=== PATIENT | female | born 1935 | race Caucasian/White ===

== ENCOUNTER 2017-12-29 06:39 | Inpatient (IN) | payer MEDICARE, OTHER, SELFPAY ==
[2017-12-21 09:55] VITALS: BMI 26.9
[2017-12-29] VITALS (19 sets, daily range): BP systolic 91–128; BP diastolic 41–71; PULSE 68–101; RESP 10–20; TEMP 35.5–36.4; O2SAT 86–100; BMI 26.9
--- NOTE | 2017-12-29 | DI.RAD.S_ITS ---
PROCEDURE: XR HIP W PEL IF DONE LT 2V INDICATIONS: LEFT TOTAL HIP TECHNIQUE: AP pelvis and lateral view of the left hip acquired. COMPARISON: [facility] [place], [place], XR PELVIS WITH LATERAL HIP LEFT, 11/24/2017, 13:45. FINDINGS: Bones: Patient is status post left hip arthroplasty, with hardware components in expected positions. The hip joint appears congruent. The visualized bony structures appear intact. Soft tissues: Overlying postoperative changes are noted. No suspicious soft tissue densities. IMPRESSION: Left hip prosthesis in anatomic alignment. Dictated by: Ge Singh M.D. on 12/29/2017 at 13:29 Approved by: Ge Singh M.D. on 12/29/2017 at 13:30
[2017-12-29] MEDS: VANCOMYCIN 1,000 MG/200 ML FROZ.PIGGY 200 MG IV (07:25)
[2017-12-29] MEDS: LACTATED RINGERS 1,000 ML 42 ML IV ×2 (07:25→10:21)
--- NOTE | 2017-12-29 07:53 | SUR.OPER ---
Supine, head on pillow, torso on pink pad positioner. Iliac crest at flex of foot end of table. Gel roll under operative hip. Both arms secured on arm boards <90 degrees abduction.
[2017-12-29] MEDS: CELECOXIB 200 MG CAPSULE PO ×2 (07:54→21:05)
[2017-12-29] MEDS: ACETAMINOPHEN 325 MG TABLET 975 MG PO ×3 (07:54→21:04)
--- NOTE | 2017-12-29 08:02 | SUR.PREOP ---
Dr Dodge verballed cancelled test/lab on urine sample sent and lab told to dispose of sample. No order had been found in pre op orders.
[2017-12-29] MEDS: CEFAZOLIN 2 GM/100 ML FROZ.PIGGY IV ×2 (08:20→16:48)
[2017-12-29] MEDS: BUPIVACAINE 0.25% W/ EPI VIAL 50 ML INJ (09:00)
[2017-12-29] MEDS: BUPIVACAINE LIPOSOME 266 MG/20 ML VIAL INJ (09:00)
--- NOTE | 2017-12-29 13:21 | PM.PREOP ---
Pre-operative Note Interval Note Pre-op Check: History & Physical Reviewed by Physician and Exam Performed
--- NOTE | 2017-12-29 13:26 | P.OP_ITS ---
Operative Date/Time/Diagnoses Date of procedure: 12/29/17 Time of procedure: 08:22 Pre-op diagnosis: Left hip OA severe Post-op diagnosis: same Procedure & Clinicians Procedure: Left total hip arthroplasty Same procedure as scheduled: Yes Indications: The patient has had progressively worsening left hip pain with radiographic changes consistent with arthritis. Non-operative management has failed and the patient has requested total hip replacement. The risks, benefits and alternatives to surgery were discussed with the patient prior to proceeding. Risks discussed included, but were not limited to, failure to relieve pain, leg length discrepancy, dislocation, stiffness, infection, nerve damage, deep venous thrombosis, pulmonary embolism, stroke, coma, heart attack, permanent paralysis and , as well as the potential need for eventual revision of the prosthetic. Surgeon: Chely Dodge Client Technical Professional: Darlene Murillo Anesthesia Type: General Operative Notes Findings: Severe left hip osteoarthritis, adequate stability, tight hip with moderate scar Closure Type: primary Specimen(s): none sent Implants & Drains: [employer] R3 cup 52, polyethylene 52 x 36 neutral, size 6 anthology femoral stem [employer], -3 head Blood products transfused: none Procedure in detail: The patient was brought to the operating room. Patient was carefully positioned in the supine position. Time-out was performed and antibiotics were given. Anesthesia was induced. She was positioned in the on the table in order to allow hyperextension of the hip. Bilateral lower extremities were prepped and draped in a standard sterile fashion. An anterior incision was made 1 fingerbreadth lateral to the anterior superior iliac spine and extended distally towards the greater trochanter. Dissection was carried out through skin and subcutaneous tissues. The skin and subcutaneous tissues were carefully injected with Marcaine with epi. Superficial hemostasis was achieved. The fascia over the tensor fascia pineda was defined and incised with a knife. Two Allis clamps were used to grasp the fascia. Tensor fascia pineda was retracted laterally. A gelpi retractor was placed. Dissection was carried out down along the neck. The circumflex vessels were carefully identified and cauterized with the Aqua Mantis. There was good visualization of the femoral neck. A Cobra was placed superior to the neck and the gluteus fibers were carefully stripped from that superior aspect of the capsule. There was moderate scar in the anterior hip. A 2nd retractor was placed along the inferior aspect of the neck. The rectus insertion along the capsule was released. A 3rd retractor that was then gently placed over the rim of the acetabulum under the rectus. Capsule was carefully incised and released from the intertrochanteric line circumferentially superior to the mid sagittal line and inferiorly to the mid sagittal line until the lesser trochanter was palpable. A tag stitch was placed both in the superior and inferior limb of the capsular insertion. The acetabulum capsule was also released up to the mid sagittal 12:00 position. Portion of the labrum was resected. A saw was used to perform an osteotomy at the level of the intertrochanteric line and the junction of the superior femoral neck leaving approximately 1 finger breath of residual inferior neck above the lesser trochanter. A 2nd cut was made along the femoral neck at the base of the head and a napkin ring of neck was removed. Corkscrew was placed in the femoral head and the head was removed without difficulty. Retractors were then repositioned around the acetabulum. Residual labrum was resected and additional osteophytes were removed. A Reamer that was 4 mm below the templated size was placed by hand in the acetabulum and it was reamed to centralize the acetabulum. It was then reamed up to 2 under the templated size fluoroscopy was brought in to confirm the position of the reaming and depth of reaming. I reamed 1 under the anticipated size and touch the rim with line to line reaming. A trial cup was placed and noted that it was appropriately sized and fluoroscopy confirmed position and depth. The component was open and inserted without difficulty fluoroscopic imaging was used to confirm that the cup had been adequately seated and was well positioned. Neutral poly liner was placed. The cup was tested and noted to be stable. Attention was then directed to the femur. The femur was gently hyperextended additional capsular release was performed as needed in order to allow adequate visualization of the proximal femur with elevation of the femur. Patient was placed in a hyperextended slightly abducted position with maximum external rotation. Box osteotome was used to check for any residual neck as well as sclerotic bone along the trochanter. Causey pepper was placed in the femur. Additional broaching was performed. Canal finer was used to determine the alignment of the canal and position. Size 1 broach was placed. The canal was then appropriately broached up to the templated size as long as there was adequate stability of the broach and serial advancement of the broach without excessive impingement. Specific attention was directed at avoiding varus attempting to direct the distal aspect of the approach more anteriorly and avoiding excessive anteversion. Trial reduction showed acceptable range of motion, good stability, no posterior impingement, catholic of leg length and appropriate lateral shuck. I also hyperflexed the hip and checked that there was no impingement anteriorly and there was good stability with flexion, abduction and internal rotation. Final neutral poly was placed without difficulty. Marcaine and Exparel were injected.. The stem was placed without difficulty. Repeat trial reduction and x-ray showed acceptable overall position, length, and no evidence of the femoral fracture. Final head was placed. Wound was meticulously irrigated with normal saline. The hip was reduced and additional Exparel and Marcaine were injected. The capsule was closed with interrupted black braided nylon. The fascia of the tensor was closed with interrupted and running Vicryl. No drain was placed. Any tensor fascia pineda muscle that appeared to be contused or injured which was a minimal amount was carefully resected. Capsule around the tensor was injected with Exparel and Marcaine. The skin was closed with barbed stitches for the subcutaneous tissue and skin. We also used surgical glue. The wound was dressed sterilely. Brief Betadine soak was also used and was meticulously irrigated with normal saline. Patient was transferred to recovery room in satisfactory condition. Complications: none Condition: stable Disposition: Acute Care Plan for aftercare: The patient will be maintained on a standard total hip replacement protocol with weight bearing as tolerated and posterior hip precautions. The patient will receive aspirin and sequential compression devices for DVT prophylaxis. The patient will be discharged home when safe for the home environment.
--- NOTE | 2017-12-29 15:02 | PC.NURSE ---
PT ARRIVED FROM PACU AT APPROX 1400. A/OX3. BP LOW. PT DENIES DIZZINESS OR S/S OF HYPOTENSION. RA SATS 98%, HOSPITAL C-PAP AT BEDSIDE FOR SLEEP. AQUACEL TO LEFT HIP C/D/I. CMS+. SCD'S PLACED ON. DENIES PAIN. SPOUSE AT BEDSIDE. ORIENTED TO ROOM AND CALL SYSTEM. NO PALACIOS PT VERBALIZED SHE WILL NOTIFY STAFF WITH URGE TO VOID. BED ALARM PLACED ON.
--- NOTE | 2017-12-29 15:15 | PT.IIE ---
Current Diagnoses Unilateral primary osteoarthritis, left hip (12/29/17) Surgery Performed Operation Date: 12/29/17 07:45 Actual Procedures p Total Hip Arthroplasty/Anterior Approach - Chely Benavides MD Surgical History (Last Updated 12/21/17 @ 10:53 by Minerva Charlton, RN) History of arthroplasty of right knee (Acute) History of bilateral tubal ligation (Acute) History of carpal tunnel surgery of right wrist (Acute) History of partial mastectomy of left breast (Acute) History of total right hip arthroplasty (Acute) Status post left partial knee replacement (Acute) Medical History (Last Updated 12/21/17 @ 13:57 by Minerva Charlton RN) Arthritis (Acute) Breast cancer (Acute) Depression (Acute) Easy bruisability (Acute) First degree AV block (Acute) EKWOK (hard of hearing) (Acute) HTN (hypertension) (Acute) Hyperlipidemia (Acute) Neck pain (Acute) Osteoarthritis (Acute) PAC (premature atrial contraction) (Acute) Pulmonary hypertension (Acute) Restless leg syndrome (Acute) Physical Therapy Inpatient Evaluation/Re-Eval M1 PT/OT-IP Prior Functional Status Start: 12/29/17 16:58 Freq: NEEDED Status: Active Protocol: Document 12/29/17 15:15 AB (Rec: 12/29/17 17:10 AB [id number]) Medical Review Prior Functional Status Medical History Reviewed Yes Communication able to make needs known Mobility and Gait pt stated that she is independent with ambulation without AD but has used SPC for the last 2 weeks due to L hip Social History Household Members spouse Living Arrangements House Number of Floors (Floors) One Floor Number of Stairs To Enter/Railing? has no steps to enter from the garage to her room but has 2 platform steps to get to the the rest of the house Home Environment Standard Height Toilet Walk in Shower Home Equipment Front Wheel Walker Straight Cane Manual Wheelchair Shower Seat without Backrest Hand Held Shower Employment Status Retired M2 PT-IP Current Condition Start: 12/29/17 16:58 Freq: NEEDED Status: Active Protocol: Document 12/29/17 15:15 AB (Rec: 12/29/17 17:10 AB [id number]) Physical Therapy Current Condition Current Condition Evaluation Date 12/29/17 Treatment Diagnosis s/p L YEN Onset Date 12/29/17 Precautions Anterior Hip Precautions No Hip Extension No Hip External Rotation Other Precautions per doctor's operative notes under plan of care: posterior hip precautions but on order: anterior hip precautions. informed nurse and stated that Dr. benavides specify anterior hip precautions Weight Bearing Status Weight Bearing Status Weight Bear as Tolerated M3 PT-IP Subjective Start: 12/29/17 16:58 Freq: NEEDED Status: Active Protocol: Document 12/29/17 15:15 AB (Rec: 12/29/17 17:10 AB [id number]) Subjective Physical Therapy Visit Type Type Initial Evaluation Visit Start Time 15:15 Visit Stop Time 16:38 Total Visit Minutes 83 Number of RESPIRATORY PHYSICIAN Visits 0 Physical Therapy Visit Comments Patient Comments pt agreeable to do therapy Therapy Pain Assessment Pain When Pain Assessed At Rest Pain Present Pain Present Pain Reported Location left hip Intensity 2 Scale Used Numeric (1 - 10) Pain Management Techniques Apply Cold M4 PT-IP Mobility and Gait Start: 12/29/17 16:58 Freq: NEEDED Status: Active Protocol: Document 12/29/17 15:15 AB (Rec: 12/29/17 17:10 AB [id number]) PT-Bed Mobility Assessment Supine to Sit Supine to Sit Standby Assistance Sit to Supine Sit to Supine Standby Assistance Scooting Scooting to Edge of Bed Standby Assistance PT-Transfer Assessment Sit to and From Stand Sit to and from Stand Contact Guard Assistance Equipment Transfer Assistive Device Gait Belt Front Wheeled Walker Orthotic/Prosthetic Devices or Brace: No Transfers Transfer Destination Toilet Transfer Technique pt ambulated to the toilet Transfer Ability Level of Assist Contact Guard Assistance Use of Upper Extremities Gait Assessment Gait Gait Assistance Required: Contact Guard Assist Distance (Feet) (feet) 12 Able to Maintain Weight Bearing Status Yes During Gait Assistive Devices Assistive Device Gait Belt Front Wheeled Walker Orthotic/Prosthetic Devices or Brace: No Gait Deviations General Gait Pattern Antalgic Factors Limiting Gait Function Factors Limiting Gait Function Decreased Activity Tolerance Decreased Strength Limited Range of Motion Pain Poor Balance Poor Safety Awareness PT-Balance Assessment Sitting Balance and Reactions Static Sitting Balance Ability Good Dynamic Sitting Balance Ability Good Standing Balance and Reactions Static Standing Balance Ability Fair Dynamic Standing Balance Ability Fair Device Used FWW M5 PT-IP Objective Assessments Start: 12/29/17 16:58 Freq: NEEDED Status: Active Protocol: Document 12/29/17 15:15 AB (Rec: 07/13/18 17:10 AB [id number]) Orientation Orientation/Cognition Level of Alertness Alert Orientation Name Age Birthday Place Situation Safety Awareness Decreased Safety Awareness Gross Range of Motion Lower Extremity ROM Assessment Within Functional Limits Strength Lower Extremity Strength Assessment Left Impaired Hip 4-/5 Knee 4-/5 Ankle 4+/5 Sensation Assessment Sensation Gross Sensation WNL M6 PT-IP Treatment Start: 12/29/17 16:58 Freq: NEEDED Status: Active Protocol: Document 12/29/17 15:15 AB (Rec: 12/29/17 17:10 AB [id number]) Physical Therapy Treatment Education Education Provided Precautions Weight Bearing Status Post-Op Packet Safety Other Treatments Other Treatment Performed pt's spouse present and educated on precautions; pt ambulated to the toilet using FWW CGA ~ 12 ft and was able to maintain standing balance CGA while doing hygiene care. pt ambulated back towards the bed using FWW CGA. positioned pt in bed. ice pack provided. M7 PT-IP Assessment and Plan Start: 12/29/17 16:58 Freq: NEEDED Status: Active Protocol: Document 12/29/17 15:15 AB (Rec: 12/29/17 17:10 AB [id number]) PT Summary Assessment and Plan Potential Rehabilitation Potential Good Status of Condition at Evaluation Evolving Summary Impairments Pain ROM Strength Balance Cognition Bed Mobility Transfers Gait Activity Tolerance Assessment Summary pt requiring one person assist with mobility and will have spouse to assist her at home. Goals Bed Mobility Goal Independent Transfer Goal Independent Gait Goal Standby Assistance Gait Distance 150 Other Goals up/down 2 platform steps using FWW SBA Days to Meet Goals 2 Frequency of Treatment Frequency Of Treatment Twice a Day Treatment Plan Physical Therapy Treatment Plan Bed Mobility Training Transfer Training Gait Training Therapeutic Exercise Balance Retraining Post Op Education Discharge Planning Hot or Cold Pack Neuromuscular Re-ed Coordination Retraining Manual Therapy Other Recommendations and Next Treatment stair climbing, caregiver Focus training Recommendations To Nursing Amount of Assist Needed 1 Person Assist Discharge Recommendations PT Discharge Recommendations Home with Assistance Outpatient PT
[2017-12-29] MEDS: LACTATED RINGERS 1,000 ML 125 ML IV (16:47)
[2017-12-29] MEDS: PRAMIPEXOLE 1 MG TABLET 2 MG PO ×2 (16:47→21:05)
[2017-12-29] MEDS: CEFADROXIL 500 MG 500 EACH PO (21:04)
[2017-12-29] MEDS: DOCUSATE 100 MG CAPSULE PO (21:05)
[2017-12-29] MEDS: ATORVASTATIN 20 MG TABLET PO (21:05)
[2017-12-29] MEDS: ASPIRIN EC 81 MG TABLET PO (21:05)
--- NOTE | 2017-12-29 21:26 | PC.NURSE ---
Addendum entered by Swathi Vazquez R.N. 12/29/17 22:39: pt desats while sleeping, as low as 79%. pt agreeable to try CPAP for tonight. will continue to monitor Original Note: SHIFT NOTE Pt with histroy of sleep apnea and refuses CPAP use here at the hospital (pt came up to the unit with CPAP in place and intermittently resting/desat per report) pt can be heard snoring loudly from outside the room if CPAP not in place. per pt report, she refuses to wear her CPAP at home. RT at bedside to discuss withpt. pt verbally agreeable to wear continuous O2 monitor overnight and RT will be notified if desats occur.
[2017-12-29] MEDS: TRAMADOL 50 MG TABLET PO (23:46)
--- NOTE | 2017-12-30 00:03 | PC.NURSE ---
Alert and oriented but SELDOVIA even with bilateral hearing aids in. Breath sounds CTA. Using CPAP at night and resting sat on RA was 98%. HRR. Denies nausea. BT hypoactive but states she has passed some flatus. Voiding without difficulty and expresses no concerns with urination. Able to move self in bed and walked to bathroom with walker and 1 assist. Dressing to left hip is CDI. Does complain of 7/10 which she states is much better than it has been but agreeable to taking Tramadol as earlier Tylenol was not effective and is hesitant to take narcotics. Wearing bilateral SCD's. Fall risk score is high and bed alarm is activated.
[2017-12-30 00:08] VITALS: BP 140/63; PULSE 93; RESP 17; TEMP 36.2; O2SAT 97
[2017-12-30] MEDS: CEFAZOLIN 2 GM/100 ML FROZ.PIGGY IV (00:47)
[2017-12-30] MEDS: LACTATED RINGERS 1,000 ML 125 ML IV (00:50)
[2017-12-30] MEDS: OXYCODONE IR 5 MG TABLET PO ×4 (02:55→19:37)
[2017-12-30 05:39] LABS: Hematocrit 37.6 % (36-46); Hemoglobin 12.9 g/dL (12.0-16.0)
[2017-12-30 05:56] VITALS: BP 136/70; PULSE 87; RESP 17; TEMP 36.7; O2SAT 99
[2017-12-30 08:00] VITALS: BP 121/71; PULSE 87; RESP 16; TEMP 36.5; O2SAT 96
[2017-12-30] MEDS: ACETAMINOPHEN 325 MG TABLET 975 MG PO ×3 (08:11→20:32)
[2017-12-30] MEDS: ANASTROZOLE 1 MG TABLET PO (08:12)
[2017-12-30] MEDS: PRAMIPEXOLE 1 MG TABLET 2 MG PO ×3 (08:12→20:33)
[2017-12-30] MEDS: CEFADROXIL 500 MG 500 EACH PO ×2 (08:12→20:33)
[2017-12-30] MEDS: ASPIRIN EC 81 MG TABLET PO ×2 (08:12→20:33)
[2017-12-30] MEDS: DOCUSATE 100 MG CAPSULE PO ×2 (08:12→20:33)
[2017-12-30] MEDS: FLUoxetine 20 MG CAPSULE PO (08:12)
--- NOTE | 2017-12-30 09:17 | PT.IPTN ---
Current Diagnoses Unilateral primary osteoarthritis, left hip (12/29/17) Surgery Performed Operation Date: 12/29/17 07:45 Actual Procedures p Total Hip Arthroplasty/Anterior Approach - Chely Benavides MD Physical Therapy Treatment Note M2 PT-IP Current Condition Start: 12/29/17 16:58 Freq: NEEDED Status: Active Protocol: Document 12/29/17 15:15 AB (Rec: 12/29/17 17:10 AB [id number]) Physical Therapy Current Condition Current Condition Evaluation Date 12/29/17 Treatment Diagnosis s/p L YEN Onset Date 12/29/17 Precautions Anterior Hip Precautions No Hip Extension No Hip External Rotation Other Precautions per doctor's operative notes under plan of care: posterior hip precautions but on order: anterior hip precautions. informed nurse and stated that Dr. benavides specify anterior hip precautions Weight Bearing Status Weight Bearing Status Weight Bear as Tolerated M3 PT-IP Subjective Start: 12/29/17 16:58 Freq: NEEDED Status: Active Protocol: Document 12/30/17 09:17 AB (Rec: 12/30/17 11:06 AB [id number]) Subjective Physical Therapy Visit Type Type Treatment Note Visit Start Time 09:17 Visit Stop Time 09:44 Total Visit Minutes 27 Number of UNDERWATER ROBOTICIST Visits 0 Physical Therapy Visit Comments Patient Comments pt agreeable to do therapy Therapy Pain Assessment Pain When Pain Assessed At Rest Pain Present Pain Present Pain Reported Location left hip Intensity 7 Scale Used Numeric (1 - 10) Pain Management Techniques Apply Cold Re-positioning Timing of Activity with Medications M4 PT-IP Mobility and Gait Start: 12/29/17 16:58 Freq: NEEDED Status: Active Protocol: Document 12/30/17 09:17 AB (Rec: 12/30/17 11:06 AB [id number]) PT-Bed Mobility Assessment Supine to Sit Supine to Sit Standby Assistance PT-Transfer Assessment Sit to and From Stand Sit to and from Stand Minimal Assistance 1 Person Assistance Use of Upper Extremities Equipment Transfer Assistive Device Gait Belt Front Wheeled Walker Transfers Transfer Destination Toilet Transfer Technique pt ambulated to the toilet Gait Assessment Gait Gait Assistance Required: Minimum Assistance 1 Person Assist Distance (Feet) (feet) 10 Able to Maintain Weight Bearing Status Yes During Gait Assistive Devices Assistive Device Gait Belt Front Wheeled Walker Orthotic/Prosthetic Devices or Brace: No Gait Deviations General Gait Pattern Antalgic Decreased Stride Length Decreased Feet Clearance Factors Limiting Gait Function Factors Limiting Gait Function Decreased Activity Tolerance Decreased Strength Pain Poor Balance Poor Safety Awareness Comments Gait Comments pt refused further ambulation. BP prior to tx: 93/51 BP sitting on EOb: 128/63 BP sitting on chair after ambulation: 118/57 M5 PT-IP Objective Assessments Start: 12/29/17 16:58 Freq: NEEDED Status: Active Protocol: Document 12/29/17 15:15 AB (Rec: 12/29/17 17:10 AB [id number]) Orientation Orientation/Cognition Level of Alertness Alert Orientation Name Age Birthday Place Situation Safety Awareness Decreased Safety Awareness Gross Range of Motion Lower Extremity ROM Assessment Within Functional Limits Strength Lower Extremity Strength Assessment Left Impaired Hip 4-/5 Knee 4-/5 Ankle 4+/5 Sensation Assessment Sensation Gross Sensation WNL M6 PT-IP Treatment Start: 12/29/17 16:58 Freq: NEEDED Status: Active Protocol: Document 12/30/17 09:17 AB (Rec: 12/30/17 11:06 AB [id number]) Physical Therapy Treatment Education Education Provided Precautions Weight Bearing Status Post-Op Packet Safety M7 PT-IP Assessment and Plan Start: 12/29/17 16:58 Freq: NEEDED Status: Active Protocol: Document 12/30/17 09:17 AB (Rec: 12/30/17 11:06 AB [id number]) PT Summary Assessment and Plan Potential Rehabilitation Potential Good Summary Impairments Pain ROM Strength Balance Cognition Bed Mobility Transfers Gait Activity Tolerance Progress Towards Goals Progressing Toward Goals Assessment Summary pt requiring one person assist with mobility and will have spouse to assist her at home. will conduct caregiver training when appropriate. Goals Bed Mobility Goal Independent Transfer Goal Independent Gait Goal Standby Assistance Gait Distance 150 Other Goals up/down 2 platform steps using FWW SBA Days to Meet Goals 2 Frequency of Treatment Frequency Of Treatment Twice a Day Treatment Plan Physical Therapy Treatment Plan Bed Mobility Training Transfer Training Gait Training Therapeutic Exercise Balance Retraining Post Op Education Discharge Planning Hot or Cold Pack Neuromuscular Re-ed Coordination Retraining Manual Therapy Other Recommendations and Next Treatment stair climbing, caregiver Focus training Recommendations To Nursing Amount of Assist Needed 1 Person Assist Discharge Recommendations PT Discharge Recommendations Home with Assistance Outpatient PT
--- NOTE | 2017-12-30 10:02 | PM.PNPO.1 ---
Subjective Date Patient Seen: 12/30/17 Time Patient Seen: 10:02 Interval history: PD 1. S/P LT Anterior YEN by Dr. Dodge. Patient states pain is tolerable with pain medications. present in room. Has not been up with PT yet. Plan is to d/c home tomorrow. Pt lives on [facility]. [facility] patient so had discharge medications already. Exam Vital Signs (past 8 hours): - 12/30/17 05:56 12/30/17 08:00 Temperature 98.0 F 97.7 F Pulse Rate 87 87 Respiratory Rate 17 16 Blood Pressure 136/70 H 121/71 H Pulse Oximetry 99 96 Oxygen Delivery Method Room Air,CPAP Oxygen Flow Rate 0 Narrative Exam Narrative: Pt in bed. A&O x3. Left hip Aquacel dressing CDI. Mod swelling in left thigh. 5/5 Left ankle strength. Gigi calves soft and nontender. NV status intact. Objective Labs Result Diagrams: 12/30/17 05:17 Labs: Laboratory Results - last 24 hr 12/30/17 05:17 Hgb 12.9 Hct 37.6 Assessment & Plan Post-op Postoperative Procedures Operation Date: 12/29/17 07:45 Actual Procedures Side Surgeon p Total Hip Arthroplasty/Anterior Approach Chely Dodge MD PD1 s/p LT YEN. Continue DVT prophylaxis with ASA and SCDs. Mobilize with PT. Continue pain medications as needed. Plan for d/c home tomorrow. Time Spent With Patient less than 15 minutes Quality VTE Deep Vein Thrombosis/Pulmonary Embolism Present on Admission: No
[2017-12-30 12:00] VITALS: BP 105/58; PULSE 85; RESP 16; TEMP 36.7; O2SAT 97
--- NOTE | 2017-12-30 14:35 | PT.IPTN ---
Current Diagnoses Unilateral primary osteoarthritis, left hip (12/29/17) Surgery Performed Operation Date: 12/29/17 07:45 Actual Procedures p Total Hip Arthroplasty/Anterior Approach - Chely Benavides MD Physical Therapy Treatment Note M2 PT-IP Current Condition Start: 12/29/17 16:58 Freq: NEEDED Status: Active Protocol: Document 12/29/17 15:15 AB (Rec: 12/29/17 17:10 AB [id number]) Physical Therapy Current Condition Current Condition Evaluation Date 12/29/17 Treatment Diagnosis s/p L YEN Onset Date 12/29/17 Precautions Anterior Hip Precautions No Hip Extension No Hip External Rotation Other Precautions per doctor's operative notes under plan of care: posterior hip precautions but on order: anterior hip precautions. informed nurse and stated that Dr. benavides specify anterior hip precautions Weight Bearing Status Weight Bearing Status Weight Bear as Tolerated M3 PT-IP Subjective Start: 12/29/17 16:58 Freq: NEEDED Status: Active Protocol: Document 12/30/17 14:35 AB (Rec: 12/30/17 16:33 AB [id number]) Subjective Physical Therapy Visit Type Type Treatment Note Visit Start Time 14:35 Visit Stop Time 14:55 Total Visit Minutes 20 Number of ELL TEACHER Visits 0 Physical Therapy Visit Comments Patient Comments pt agreeable to do therapy Therapy Pain Assessment Pain When Pain Assessed At Rest Pain Present Pain Present Pain Reported Location left hip Intensity 7 Scale Used Numeric (1 - 10) Pain Management Techniques Apply Cold Timing of Activity with Medications M4 PT-IP Mobility and Gait Start: 12/29/17 16:58 Freq: NEEDED Status: Active Protocol: Document 12/30/17 14:35 AB (Rec: 12/30/17 16:33 AB [id number]) PT-Bed Mobility Assessment Sit to Supine Sit to Supine Contact Guard Assistance PT-Transfer Assessment Sit to and From Stand Sit to and from Stand Contact Guard Assistance Equipment Transfer Assistive Device Gait Belt Front Wheeled Walker Comments Mobility Comments pt requested to go back to bed after ambulation. Gait Assessment Gait Gait Assistance Required: Contact Guard Assist Distance (Feet) (feet) 100 Able to Maintain Weight Bearing Status Yes During Gait Assistive Devices Assistive Device Gait Belt Front Wheeled Walker Gait Deviations General Gait Pattern Antalgic Factors Limiting Gait Function Factors Limiting Gait Function Decreased Activity Tolerance Decreased Strength Limited Range of Motion Pain Poor Balance M5 PT-IP Objective Assessments Start: 12/29/17 16:58 Freq: NEEDED Status: Active Protocol: Document 12/29/17 15:15 AB (Rec: 12/29/17 17:10 AB [id number]) Orientation Orientation/Cognition Level of Alertness Alert Orientation Name Age Birthday Place Situation Safety Awareness Decreased Safety Awareness Gross Range of Motion Lower Extremity ROM Assessment Within Functional Limits Strength Lower Extremity Strength Assessment Left Impaired Hip 4-/5 Knee 4-/5 Ankle 4+/5 Sensation Assessment Sensation Gross Sensation WNL M6 PT-IP Treatment Start: 12/29/17 16:58 Freq: NEEDED Status: Active Protocol: Document 12/30/17 14:35 AB (Rec: 12/30/17 16:33 AB [id number]) Physical Therapy Treatment Education Education Provided Precautions Weight Bearing Status Post-Op Packet Safety M7 PT-IP Assessment and Plan Start: 12/29/17 16:58 Freq: NEEDED Status: Active Protocol: Document 12/30/17 14:35 AB (Rec: 12/30/17 16:33 AB [id number]) PT Summary Assessment and Plan Potential Rehabilitation Potential Good Summary Impairments Pain ROM Strength Balance Sensation Bed Mobility Transfers Gait Activity Tolerance Progress Towards Goals Progressing Toward Goals Assessment Summary pt requiring CGA with mobility and plans to go home with her spouse to assist her. pt refused to do stair stated that she plans to stay on her bedroom for the next few weeks and does not have to do stairs. pt her bedroom but has 2 platform steps to get to other placed in the house. Goals Bed Mobility Goal Independent Transfer Goal Independent Gait Goal Standby Assistance Gait Distance 150 Other Goals up/down 2 platform steps using FWW SBA Days to Meet Goals 2 Frequency of Treatment Frequency Of Treatment Twice a Day Treatment Plan Physical Therapy Treatment Plan Bed Mobility Training Transfer Training Gait Training Therapeutic Exercise Balance Retraining Post Op Education Discharge Planning Hot or Cold Pack Neuromuscular Re-ed Coordination Retraining Manual Therapy Other Recommendations and Next Treatment stair climbing, caregiver Focus training Recommendations To Nursing Amount of Assist Needed 1 Person Assist Discharge Recommendations PT Discharge Recommendations Home with Assistance Outpatient PT
[2017-12-30 16:09] VITALS: BP 124/61; PULSE 81; RESP 16; TEMP 36.8; O2SAT 96
--- NOTE | 2017-12-30 16:35 | CM.DANOTE ---
DCP/Assessment: Reviewed chart. Patient is a 82yr old female admitted to [facility] for elective Left YEN performed on 12-29-[address] Dodge. PCP listed is Dr. Stark. Primary payor is 1)Medicare 2)[facility]. Met with patient explained CM/SW role. Patient seen by therapy and current recommendation by Ortho and therapy is for patient to d/c home when medically stable. Patient aware and agreeable, hopes to discharge tomorrow 12-31-17. Patient reports that she has all needed DME and outpatient therapy has been arranged in Monday. Patient reports that her spouse/Rony will pick her up at time of d/c. Patient indicates that she will need priority boarding pass to return to Monday ([place]). Name/number and plan of CM steamship agent placed on white board. P: Home when stable. CM team to follow closely. MANAS Harris Discharge Planning/Care Management CM Discharge Assessment Start: 12/30/17 16:33 Freq: Status: Active Protocol: Document 12/30/17 16:34 KJS (Rec: 12/30/17 16:35 KJS [id number]) Discharge Planning Assessment Assigned Deputy Bailiff MANAS/Ailyn History Provided By Patient Has Patient been admitted in last 30 No days? Prior Living Arrangements House Household Members spouse Independent with ADL's Yes Is patient alert and oriented? Yes DME Already Rented / Owned Elevated Toilet Seat FWW / Walker Cane Other Community Services Needed at Discharge Physical Therapy Physical Barriers in Home Environment Stairs Discharge Plan Home Review Status In Process Next Review Type Continued Stay Review
[2017-12-30 19:35] VITALS: BP 148/63; PULSE 84; RESP 18; TEMP 36.7; O2SAT 98
[2017-12-30] MEDS: CELECOXIB 200 MG CAPSULE PO (20:32)
[2017-12-30] MEDS: ATORVASTATIN 20 MG TABLET PO (20:33)
[2017-12-30] MEDS: SODIUM CHLORIDE 0.9% FLUSH 10 ML IV (20:33)
[2017-12-31 00:31] VITALS: BP 144/67; PULSE 100; RESP 18; TEMP 36.5; O2SAT 97
[2017-12-31] MEDS: OXYCODONE IR 5 MG TABLET PO ×2 (00:34→08:01)
--- NOTE | 2017-12-31 07:43 | CM.DPNOTE ---
Addendum entered by MANAS Gibson 12/31/17 08:30: ADD: SW met bedside with pt and spouse and provided Medicare Rights and they acknowledged understanding and signed the Medicare Message. Pt discussed her pain and some apprehension about discharging home but discussed therapy team working with pt today before discharge and pt agreeable and feeling like d/c home today is likely doable. BF Original Note: DCP Discharge Home Per MD, pt is medically stable to d/c home today with no identified barriers to discharge. Per PT, recommending safe d/c home with spouse assist and outpt PT and pt plans to mostly stay in her bedroom to recover. Plan: Patient to d/c home today via spouse POV and Priority Boarding pass back to the [place]. No SW needs at this time, please refer if indicated. MANAS Gibson
[2017-12-31] MEDS: ACETAMINOPHEN 325 MG TABLET 975 MG PO (08:01)
[2017-12-31] MEDS: FLUoxetine 20 MG CAPSULE PO (08:02)
[2017-12-31] MEDS: ASPIRIN EC 81 MG TABLET PO (08:02)
[2017-12-31] MEDS: VALSARTAN 80 MG TABLET 320 MG PO (08:02)
[2017-12-31] MEDS: DOCUSATE 100 MG CAPSULE PO (08:02)
[2017-12-31] MEDS: PRAMIPEXOLE 1 MG TABLET 2 MG PO (08:03)
[2017-12-31] MEDS: CEFADROXIL 500 MG 500 EACH PO (08:03)
[2017-12-31] MEDS: ANASTROZOLE 1 MG TABLET PO (08:03)
[2017-12-31 08:14] VITALS: BP 139/65; PULSE 94; RESP 15; TEMP 36.4; O2SAT 96
--- NOTE | 2017-12-31 10:00 | PT.IPTN ---
Current Diagnoses Unilateral primary osteoarthritis, left hip (12/29/17) Surgery Performed Operation Date: 12/29/17 07:45 Actual Procedures p Total Hip Arthroplasty/Anterior Approach - Chely Benavides MD Physical Therapy Treatment Note M2 PT-IP Current Condition Start: 12/29/17 16:58 Freq: NEEDED Status: Active Protocol: Document 12/29/17 15:15 AB (Rec: 12/29/17 17:10 AB [id number]) Physical Therapy Current Condition Current Condition Evaluation Date 12/29/17 Treatment Diagnosis s/p L YEN Onset Date 12/29/17 Precautions Anterior Hip Precautions No Hip Extension No Hip External Rotation Other Precautions per doctor's operative notes under plan of care: posterior hip precautions but on order: anterior hip precautions. informed nurse and stated that Dr. benavides specify anterior hip precautions Weight Bearing Status Weight Bearing Status Weight Bear as Tolerated M3 PT-IP Subjective Start: 12/29/17 16:58 Freq: NEEDED Status: Active Protocol: Document 12/31/17 09:05 CLB (Rec: 12/31/17 10:00 CLB [id number]) Subjective Physical Therapy Visit Type Type Treatment Note Visit Start Time 09:05 Visit Stop Time 09:25 Total Visit Minutes 20 Number of ACCOUNTS RECEIVABLE CLERK Visits 1 Physical Therapy Visit Comments Patient Comments pt agreeable to do therapy Therapy Pain Assessment Pain When Pain Assessed At Rest Pain Present Pain Present Pain Reported Location left hip Intensity 7 Scale Used Numeric (1 - 10) Pain Management Techniques Apply Cold Timing of Activity with Medications M4 PT-IP Mobility and Gait Start: 12/29/17 16:58 Freq: NEEDED Status: Active Protocol: Document 12/31/17 09:05 CLB (Rec: 12/31/17 10:00 CLB [id number]) PT-Transfer Assessment Sit to and From Stand Sit to and from Stand Contact Guard Assistance Equipment Transfer Assistive Device Gait Belt Front Wheeled Walker Transfer Ability Level of Assist Contact Guard Assistance Use of Upper Extremities Comments Mobility Comments Pt and refused bed mobility training. Gait Assessment Gait Gait Assistance Required: Contact Guard Assist Distance (Feet) (feet) 100 Able to Maintain Weight Bearing Status Yes During Gait Assistive Devices Assistive Device Gait Belt Front Wheeled Walker Gait Deviations General Gait Pattern Antalgic Factors Limiting Gait Function Factors Limiting Gait Function Decreased Activity Tolerance Decreased Strength Limited Range of Motion Pain Poor Balance Comments Gait Comments Pt needed cues for step sequencing. Stair Climbing Assessment Comments Stair Climbing Comments Pt refused stair training stating she had no stairs to enter home and would stay in the area of the home that had no stairs for several weeks. M5 PT-IP Objective Assessments Start: 12/29/17 16:58 Freq: NEEDED Status: Active Protocol: Document 12/29/17 15:15 AB (Rec: 12/29/17 17:10 AB [id number]) Orientation Orientation/Cognition Level of Alertness Alert Orientation Name Age Birthday Place Situation Safety Awareness Decreased Safety Awareness Gross Range of Motion Lower Extremity ROM Assessment Within Functional Limits Strength Lower Extremity Strength Assessment Left Impaired Hip 4-/5 Knee 4-/5 Ankle 4+/5 Sensation Assessment Sensation Gross Sensation WNL M6 PT-IP Treatment Start: 12/29/17 16:58 Freq: NEEDED Status: Active Protocol: Document 12/31/17 09:05 CLB (Rec: 12/31/17 10:00 CLB [id number]) Physical Therapy Treatment Exercises Exercises Ankle Pumps Gluteal Sets Quad Sets Education Education Provided Precautions Weight Bearing Status Post-Op Packet Safety Other Treatments Other Treatment Performed present with good understanding of ther ex needing to be done at home. M7 PT-IP Assessment and Plan Start: 12/29/17 16:58 Freq: NEEDED Status: Active Protocol: Document 12/31/17 09:05 CLB (Rec: 12/31/17 10:00 CLB [id number]) PT Summary Assessment and Plan Potential Rehabilitation Potential Good Summary Impairments Pain ROM Strength Balance Sensation Bed Mobility Transfers Gait Activity Tolerance Progress Towards Goals Progressing Toward Goals Assessment Summary Pt continues to require CGA for mobility, pt and refused stair and Caregiver training stating they had friends that would also be coming to stay with them. Goals Bed Mobility Goal Independent Transfer Goal Independent Gait Goal Standby Assistance Gait Distance 150 Other Goals up/down 2 platform steps using FWW SBA Days to Meet Goals 2 Frequency of Treatment Frequency Of Treatment Twice a Day Treatment Plan Physical Therapy Treatment Plan Bed Mobility Training Transfer Training Gait Training Therapeutic Exercise Balance Retraining Post Op Education Discharge Planning Hot or Cold Pack Neuromuscular Re-ed Coordination Retraining Manual Therapy Other Recommendations and Next Treatment pt to d/c home Focus Recommendations To Nursing Amount of Assist Needed 1 Person Assist Discharge Recommendations PT Discharge Recommendations Home with Assistance Outpatient PT
--- NOTE | 2017-12-31 10:40 | PC.NURSE ---
1030 Pt dcd to home, Monday. escorted out via w/c. Gave Pt & spouse verbal & written instructions. Pass for Kj given to the spouse.
--- NOTE | 2018-01-02 10:24 | PM.DS.1 ---
History of Present Illness Date Patient Seen: 12/31/17 Chief complaint: [id number] LEFT TOTAL HIP ARTHROPLASTY ANTERIOR Narrative: Patient is a 82-year-old female with a history of left hip osteoarthritis. Failed conservative measures and elected to proceed with a left total hip replacement by Dr. Dodge at [facility] Discharge Providers Date of admission: 12/29/17 06:39 Primary care physician: Analy Stark MD Consults: 12/29/17 14:52 Consult to Discharge Planning Routine Comment: Consult to Physical Therapy Evaluate & Treat Comment: Physician Instructions: post op YEN protocol Consult to Respiratory Therapy Evaluate & Treat Comment: Physician Instructions: Evaluate and treat Discharge provider: Mireya Kc PA-C Summary Discharge Diagnosis: Left hip osteoarthritis Hospital Course: Patient was admitted and taken the operating room and she had a left anterior total hip arthroplasty by Dr. Dodge. She recovered well as transfer the floor for further care. Postop day 2 patient was ambulating well, pain was under control, urinating without difficulty and was ready to be discharged home. She is a [facility] patient and has her discharge medications already. ASA 81mg will be used for DVT prophylaxis. She has outpatient PT set up in Monday next week. Status at Discharge Cognitive/behavioral status at discharge: Alert and oriented x3 Functional status at discharge: uses cane/walker Overall status at discharge: patient is progressing back to baseline Time Spent with Patient Less than 30 minutes Exam Vital Signs (past 8 hours): Oxygen Delivery Method CPAP Oxygen Flow Rate 0 Narrative Exam Narrative: A&O x3. Left hip Aquacel dressing CDI. Mod swelling in left thigh. 5/5 Left ankle strength. Gigi calves soft and nontender. NV status intact. Objective Labs Result Diagrams: 12/30/17 05:17 Discharge Plan Discharge Plan Patient Disposition: Home, Self-Care Discharge comment: Start physical therapy next week. Continue home exercises. Discharge Med Rec/Prescriptions Prescriptions: New acetaminophen 325 mg Tablet 975 mg PO TID Qty: 0 RF: 0 aspirin 81 mg Tablet,Delayed Release (Dr/Ec) 81 mg PO BID Qty: 0 RF: 0 oxycodone 5 mg Tablet 5 mg PO Q4H PRN (Reason: Pain, Moderate (4-6)) Qty: 0 RF: 0 Continue celecoxib [Celebrex] 200 MG capsule 200 mg PO BEDTIME Qty: 0 RF: 0 anastrozole 1 mg Tablet 1 mg PO DAILY RF: 0 atorvastatin 20 mg Tablet 20 mg PO QAM RF: 0 pramipexole 0.5 mg Tablet 1 - 2 tab PO BEDTIME PRN (Reason: restless leg syndrome) RF: 0 cefadroxil 500 mg Capsule 500 mg PO BID RF: 0 nitroglycerin 0.4 mg Tablet, Sublingual 0.4 mg SUBLINGUAL Q5-15M PRN (Reason: Chest Pain) RF: 0 fluoxetine 20 mg Capsule 20 mg PO DAILY RF: 0 valsartan 160 mg Tablet 320 mg PO DAILY RF: 0 Discontinued tramadol 50 mg Tablet 50 mg PO BEDTIME PRN (Reason: pain) RF: 0 Follow up/Referrals: Chely Dodge MD [Physician] - (Follow-up as scheduled visit time and date. Contact office with any issues or concerns.) Provider Discharge Instructions Diet: Diet as Tolerated Activity: Weightbearing as tolerated left leg. Use walker/cane to assist in ambulation. Cold/Heat Therapy: Apply ice to the extremity as needed for swelling and pain. Wound Care Report to your healthcare provider any signs of infection, such as:: chills, fever, night sweats, increased pain and unusual drainage Dressing: Keep dressing clean dry intact. May shower. Visit Report/Discharge Packet Instructions: DI for Hip Replacement Visit Report Forms: Stroke Signs & Symptoms Discharge Data Primary Care Provider: Analy Stark Attending Provider: Chely Dodge Admit Date/Time: 12/29/17 06:39 Discharges patient from system. Discharge Date/Time: 12/31/17 10:30 Quality VTE Deep Vein Thrombosis/Pulmonary Embolism Present on Admission: No
== END 2017-12-31 10:30 | disposition home or self-care (01) | DRG 470 ==
PROVIDERS: Admitting Provider Orthopaedic Surgery; PCP Family Medicine Geriatric Medicine; Visit Provider Orthopaedic Surgery
PROC: 0SRB02Z Replacement of Left Hip Joint with Metal on Polyethylene Synthetic Substitute, Open Approach (ICD-10-PCS; CPT 27130; principal; 2017-12-29 07:45)
DX: M16.12 Unilateral primary osteoarthritis, left hip (principal); I10 Essential (primary) hypertension; I08.0 Rheumatic disorders of both mitral and aortic valves; Z87.891 Personal history of nicotine dependence
CPT/HCPCS: 36415; 73502; 76001; 85014; 85018; 94762; 97116; 97162; 97530; C1776; C9290; J0690; J1100; J2250; J2274; J2405; J2704; J3010; J3370

== ENCOUNTER 2020-04-21 11:04 | Day surgery (SDC) | payer MEDICARE, OTHER, SELFPAY ==
[2020-04-13 10:10] VITALS: BMI 26.9
[2020-04-21] MEDS: PROPARACAINE 0.5% OPHTH SOL 2 DROPS EYE-OP (11:34)
[2020-04-21] MEDS: CATARACT EYE COMPOUND (10 DROPS/SYRINGE) 3 DROPS EYE-OP (11:34)
[2020-04-21 11:37] VITALS: BP 175/86; PULSE 81; RESP 18; TEMP 36.3; O2SAT 99; BMI 28.7
--- NOTE | 2020-04-21 11:39 | PM.PREOP ---
Pre-operative Note Interval Note History & Physical reviewed/Exam performed by Physician: Yes Changes to H&P: No
--- NOTE | 2020-04-21 11:39 | PM.OP.1 ---
Operative Date/Time/Diagnoses Pre-op diagnosis: Nuclear cataract right eye Procedure & Clinicians Procedure: Cataract Surgery Same procedure as scheduled: Yes Surgeon: Yannick Somers Anesthesia Type: MAC +/- and Sedation Operative Notes Procedure in detail: Patient brought to the operating suite. Tetracaine drops placed in the right eye. Patient was prepped and draped in sterile manner. Wire lid speculum was placed in the eye. Betadine drops were placed on the eye. This was irrigated. Lidocaine jelly was placed on the eye. A paracentesis port was created with a side-port blade. 0.1 mL 1% preservative free lidocaine was injected into the anterior chamber. The anterior chamber was deepened with viscoelastic. 2.6 mm keratome was used to create a temporal clear corneal incision. Cystotome and Utrata forceps were used to create continuous tear capsulorrhexis. Balanced salt solution was used to hydro dissect the nucleus. The phacoemulsification handpiece was inserted and the nucleus was removed using the stop and chop technique. The irrigation aspiration handpiece was inserted and the remaining cortex was removed. Anterior chamber was deepened with viscoelastic. An Villasenor ZCB00 intraocular lens with a power of 22.0 was injected into the capsular bag. Irrigation aspiration handpiece was inserted and the remaining viscoelastic was removed. Incision was hydrated with balanced salt solution and found to be leak free with pressure with Weck-Narcisa sponges. 0.1 mL Vigamox injected anterior chamber. 0.3 mL Kenalog 10 mg was injected subconjunctivally. Lid speculum was removed. The patient left the operating room in excellent condition. Complications: none Post-operative Condition: stable Disposition: same day surgery
[2020-04-21] MEDS: PHENYLEPHRINE/LIDOCAINE VIAL (OR) 0.2 ML EYE-OP (12:08)
[2020-04-21] MEDS: MOXIFLOXACIN INJ 5 MG/ML VIAL EYE-OP (12:09)
[2020-04-21] MEDS: TRIAMCINOLONE 50 MG/5 ML VIAL INJ (12:09)
[2020-04-21] MEDS: CHONDROIDTIN/SOD HYALURONATE 1.05 ML SYRINGE INTRAOCULA (12:10)
[2020-04-21] MEDS: LIDOCAINE JELLY 2% 5 ML 1 APPLIC TOP (12:10)
[2020-04-21] MEDS: TETRACAINE 0.5% OPHTH DROPS 4 ML 2 DROPS EYE-OP (12:11)
[2020-04-21] MEDS: BALANCED SALT IRRIG SOLN NO.2 500 ML, EPINEPHrine 1 MG IRR (12:11)
[2020-04-21 12:33] VITALS: BP 143/84; PULSE 77; RESP 16; TEMP 36.9; O2SAT 96
== END 2020-04-21 12:56 | disposition home or self-care (01) ==
PROVIDERS: PCP Family Medicine; Referring Provider Ophthalmology; Visit Provider Ophthalmology
PROC: (CPT 66984; principal; 2020-04-21 12:15)
DX: H25.11 Age-related nuclear cataract, right eye (principal); I10 Essential (primary) hypertension; I50.9 Heart failure, unspecified; G25.81 Restless legs syndrome
CPT/HCPCS: 66984; J0171; J2250; J3301

== ENCOUNTER 2020-05-05 11:29 | Day surgery (SDC) | payer MEDICARE, OTHER, SELFPAY ==
[2020-04-13 10:10] VITALS: BMI 26.9
[2020-05-05] MEDS: PROPARACAINE 0.5% OPHTH SOL 2 DROPS EYE-OP (12:01)
[2020-05-05] MEDS: CATARACT EYE COMPOUND (10 DROPS/SYRINGE) 3 DROPS EYE-OP (12:02)
[2020-05-05 12:03] VITALS: BP 183/96; PULSE 85; RESP 16; TEMP 36.6; O2SAT 98; BMI 28.7
--- NOTE | 2020-05-05 12:58 | PM.PREOP ---
Pre-operative Note Interval Note History & Physical reviewed/Exam performed by Physician: Yes Changes to H&P: No
--- NOTE | 2020-05-05 12:59 | P.OP_ITS ---
Operative Date/Time/Diagnoses Pre-op diagnosis: Nuclear Cataract Left eye Post-op diagnosis: same Procedure & Clinicians Same procedure as scheduled: Yes Surgeon: Yannick Somers Anesthesia Type: MAC +/- and Sedation Operative Notes Procedure in detail: Patient brought to the operating suite. Tetracaine drops placed in the left eye. Patient was prepped and draped in sterile manner. Wire lid speculum was placed in the eye. Betadine drops were placed on the eye. This was irrigated. Lidocaine jelly was placed on the eye. A paracentesis port was created with a side-port blade. 0.1 mL 1% preservative free lidocaine was injected into the anterior chamber. The anterior chamber was deepened with viscoelastic. 2.6 mm keratome was used to create a temporal clear corneal incision. Cystotome and Utrata forceps were used to create continuous tear capsulorrhexis. Balanced salt solution was used to hydro dissect the nucleus. The phacoemulsification handpiece was inserted and the nucleus was removed using the stop and chop technique. The irrigation aspiration handpiece was inserted and the remaining cortex was removed. Anterior chamber was deepened with viscoe lastic. An Villasenor ZCB00 intraocular lens with a power of 22.0 was injected into the capsular bag. Irrigation aspiration handpiece was inserted and the remaining viscoelastic was removed. Incision was hydrated with balanced salt solution and found to be leak free with pressure with Weck-Narcisa sponges. 0.1 mL Vigamox injected anterior chamber. 0.3 mL Kenalog 10 mg was injected subconjunctivally. Lid speculum was removed. The patient left the operating room in excellent condition. Complications: none Post-operative Condition: stable Disposition: same day surgery
[2020-05-05] MEDS: PHENYLEPHRINE/LIDOCAINE VIAL (OR) 0.2 ML EYE-OP (13:22)
[2020-05-05] MEDS: TRIAMCINOLONE 50 MG/5 ML VIAL INJ (13:22)
[2020-05-05] MEDS: MOXIFLOXACIN INJ 5 MG/ML VIAL EYE-OP (13:23)
[2020-05-05] MEDS: BALANCED SALT IRRIG SOLN NO.2 500 ML, EPINEPHrine 1 MG IRR (13:23)
[2020-05-05] MEDS: LIDOCAINE JELLY 2% 5 ML 1 APPLIC TOP (13:23)
[2020-05-05] MEDS: TETRACAINE 0.5% OPHTH DROPS 4 ML 2 DROPS EYE-OP (13:23)
[2020-05-05] MEDS: CHONDROIDTIN/SOD HYALURONATE 1.05 ML SYRINGE INTRAOCULA (13:23)
[2020-05-05 13:40] VITALS: BP 144/77; PULSE 79; RESP 16; TEMP 36.7; O2SAT 97
--- NOTE | 2020-05-05 13:48 | SUR.PHASEII ---
Pt ready to go, son called, pt left unit in stable condition.
== END 2020-05-05 13:21 | disposition home or self-care (01) ==
PROVIDERS: PCP Family Medicine; Referring Provider Family Medicine; Visit Provider Ophthalmology
PROC: (CPT 66984; principal; 2020-05-05 13:15)
DX: H25.12 Age-related nuclear cataract, left eye (principal); I10 Essential (primary) hypertension; G25.81 Restless legs syndrome; I50.9 Heart failure, unspecified
CPT/HCPCS: 66984; J0171; J2250; J3010; J3301

== ENCOUNTER → 2021-05-20 | Outpatient (CLI) | payer MEDICARE, OTHER, SELFPAY ==
[2020-04-13 10:10] VITALS: BMI 26.9
--- NOTE | 2021-05-20 | DI.ECHO.S_ITS ---
[facility] +---------+ [facility] +---------+ : : [address] : [address] : : : : [id number] : : : : Phone: [phone]---------+ Echocardiogram Report + + :Name: ELIZABETH DURAN Study Date: 05/20/2021 Height: 67 in : :[facility] ReadingLocation: Weight: 167 lb : : Gender: Female BSA: 1.9 m2 : :: 1935 Age: 85 yrs BP: 122/70 mmHg: :Reason For Study: Aortic valve regurgitation, S/P PPM : :Ordering Physician: : :JASBIR Performed By: Anthony Zazueta : :Referring: KRISTIAN HYLTON : + + Interpretation Summary Left ventricular size is at the upper limits of normal. Left ventricular systolic function is normal. The ejection fraction is estimated to be 55-60%. There is a moderate dyssynchronous contraction pattern due to the paced rhythm. Diastolic function could not be accurately assessed due to paced rhythm. The right ventricle is normal in size and function. There is a pacemaker lead in the right ventricle. The right ventricular systolic pressure is estimated to be at least 33 mmHg based on an estimated right atrial pressure of 3 mm Hg. The left atrium is severely dilated. The right atrium is moderately dilated. The mitral regurgitant jet is eccentrically directed. The mitral regurgitant jet is posteriorly directed, which is consistent with anterior leaflet pathology. There is mild to moderate mitral regurgitation. There is mild to moderate aortic regurgitation. There is no other significant valvular heart disease. The aortic root is normal size. Procedure: A two-dimensional transthoracic echocardiogram with color flow and Doppler was performed. The study quality was technically adequate. The suprasternal notch views were difficult to obtain and are suboptimal in quality. Comparison is made with the echocardiogram of 03/05/2013. The patient has a paced rhythm. Left Ventricle: Left ventricular size is at the upper limits of normal. There is mild concentric left ventricular hypertrophy. There is mild proximal septal thickening noted. Left ventricular systolic function is normal. The ejection fraction is estimated to be 55-60%. There is a moderate dyssynchronous contraction pattern due to the paced rhythm. Diastolic function could not be accurately assessed due to paced rhythm. Right Ventricle: The right ventricle is normal in size and function. There is a pacemaker lead in the right ventricle. Atria: The left atrium is severely dilated. The right atrium is moderately dilated. There is a catheter/pacemaker lead seen in the right atrium. There is no Doppler evidence for an interatrial shunt. Mitral Valve: The mitral valve leaflets appear mildly thickened, but open well. The mitral regurgitant jet is eccentrically directed. The mitral regurgitant jet is posteriorly directed, which is consistent with anterior leaflet pathology. There is mild to moderate mitral regurgitation. Aortic Valve: The aortic valve is trileaflet. The aortic valve opens well. There is mild to moderate aortic regurgitation. Tricuspid Valve: The tricuspid valve is normal. There is mild tricuspid regurgitation. The right ventricular systolic pressure is estimated to be at least 33 mmHg based on an estimated right atrial pressure of 3 mm Hg. Pulmonic Valve: The pulmonic valve leaflets are thin and pliable; valve motion is normal. There is a trace or physiologic amount of pulmonic regurgitation. There is no other significant valvular heart disease. Great Vessels: The aortic root is normal size. The ascending aorta is at the upper limits of normal in size. The aortic arch could not be visualized. The IVC is of normal diameter and collapses greater than 50% with a sniff. This suggests a low right atrial pressure of 3 mm Hg. Pericardium/ Pleura There is no pericardial effusion. There is an anterior echo-free space consistent with a fat pad. There is no pleural effusion. MMode/2D Measurements & Calculations LVIDd: 4.9 cm LVOT diam: 1.9 cm LVIDs: 3.5 cm Ao root diam: 3.2 cm FS: 28.6 % asc Aorta Diam: 3.6 cm IVSd: 1.2 cm LVPWd: 1.2 cm LV owen. diameter/BSA (cm/m^2): 2.6 LV sys. diameter/BSA (cm/m^2): 1.9 LA A2 area: 30.2 cm2 RA long axis: 6.3 cm LA A4 area: 32.6 cm2 LA length (vol): 7.1 cm LA vol: 117.5 ml LA vol index: 62.8 ml/m2 LVLs ap4: 6.5 cm LVLd ap2: 7.7 cm LVLs ap2: 6.6 cm TAPSE_phl: 2.8 cm Doppler Measurements & Calculations Ao V2 max: 135.0 cm/sec LVOT Max Julio Cesar: 81.3 cm/sec Ao V2 mean: 102.0 cm/sec LV V1 max P.6 mmHg Ao max P.0 mmHg LV V1 VTI: 16.5 cm Ao mean P.0 mmHg NADNIE(I,D): 1.5 cm2 Ao V2 VTI: 31.3 cm NADINE(V,D): 1.7 cm2 sev ratio: 0.53 NADINE indexed to BSA (cm^2/m^2): 0.80 AI P1/2t: 515.4 msec AI dec slope: 229.0 cm/sec2 Med Peak E' Julio Cesar: 4.2 cm/sec TR max julio cesar: 274.2 cm/sec Lat Peak E' Julio Cesar: 7.2 cm/sec TR max P.1 mmHg PA V2 max: 87.2 cm/sec PA V2 mean: 61.7 cm/sec PA mean P.7 mmHg SV(LVOT): 46.8 ml AV P1/2t-pr_phl: 515.0 msec AV VR_phl: 0.60 NADINE(VTI)/BSA_phl: 0.80 Reading Physician:12:13 PM
== END ==
PROVIDERS: PCP Family Medicine; Referring Provider Internal Medicine Cardiovascular Disease; Visit Provider Internal Medicine Cardiovascular Disease
DX: I08.3 Combined rheumatic disorders of mitral, aortic and tricuspid valves (principal); Z95.0 Presence of cardiac pacemaker
CPT/HCPCS: 93306

== ENCOUNTER → 2021-10-29 09:52 | Outpatient (CLI) | payer MEDICARE, OTHER, SELFPAY ==
[2020-04-13 10:10] VITALS: BMI 26.9
--- NOTE | 2021-10-29 | DI.NM.S_ITS ---
PROCEDURE: NM CAITLYN PERF SPECT REST & STR Rest and pharmacological stress myocardial perfusion SPECT with gated imaging and ejection fraction RADIOPHARMACEUTICAL: 25.6 mCi Tc-99m tetrafosmin IV at rest and 10.7 mCi Tc-99m tetrafosmin IV at peak effect of pharmacological stress. [id number] was performed. INDICATIONS: Precordial pain TECHNIQUE: Radiopharmaceutical was injected at peak stress test, and also at rest. SPECT images were obtained. SPECT myocardial perfusion images were displayed in short axis, horizontal long axis, and vertical long axis views. Gated images were reviewed using [employer] software. COMPARISON: None. CARDIAC STRESS: A pharmacologic stress test was performed under the supervision of an attending staff, using an infusion of lexiscan 0.4mg IV X1. Hemodynamic data: There is normal blood pressure and heart rate response to pharmacologic stress. Symptoms: The patient denied anginal chest pain. Aminophylline: none EKG: Resting ECG showed sinus rhythm with LBBB. No diagnostic changes of ischemia; no ectopy. FINDINGS: Raw data: There is good myocardial uptake of radiotracer. No significant motion artifacts. Left ventricle function: Gated images demonstrate normal left ventricular wall thickening. No segmental wall motion abnormalities. No transient ischemic dilation; TID is 0.95 (normal less than 1.3). Left ventricle resting end diastolic volume is 197 mL. Left ventricle stress ejection fraction is 48%; normal range is above 45%. Myocardial perfusion: There is moderately intense apical defect at rest that improves with stress, suggesting artifact. No ischemia. IMPRESSION: Low risk, probably normal pharmaceutical nuclear stress test from ischemia standpoint. 1) There is moderately intense apical defect at rest that improves with stress, suggesting artifact. No ischemia. 2) Dilated left ventricle (EDV 197cc at rest) with mildly reduced systolic function (EF post stress 48%). No regional wall motion abnormalities. 3) No angina during the study. 4) ECG non-diagnostic due to baseline LBBB. 5) No prior nuclear stress test available for comparison. Dictated by: Jaye Tuttle MD on 10/29/2021 at 16:33 Approved by: Jaye Tuttle MD on 10/29/2021 at 16:36
[2021-10-29 10:43] LABS: COVID19 -Nasal RAPID Negative (Negative)
== END ==
PROVIDERS: Referring Provider Internal Medicine Cardiovascular Disease; Visit Provider Internal Medicine Cardiovascular Disease
DX: R07.2 Precordial pain (principal); I50.32 Chronic diastolic (congestive) heart failure; Z20.822 Contact with and (suspected) exposure to COVID-19
CPT/HCPCS: 78452; 87635; 93017; A9502; J2785

== ENCOUNTER → 2022-01-18 14:05 | Outpatient (CLI) | payer MEDICARE, OTHER, SELFPAY ==
[2020-04-13 10:10] VITALS: BMI 26.9
--- NOTE | 2022-01-18 | DI.CT.S_ITS ---
PROCEDURE: CT THORACIC SPINE WO CON INDICATIONS: Spondylosis without myelopathy or radiculopathy, thoracic re TECHNIQUE: Noncontrast 3 mm thick sections acquired through the region of interest in the thoracic spine. Sagittal and coronal reformats were then constructed. For radiation dose reduction, the following was used: automated exposure control. COMPARISON: [facility] Outside Film, CT, CT THORACIC SPINE WITHOUT CONTRAST, 08/27/2020, 16:00. FINDINGS: Image quality: Excellent. Bones: There is normal overall bony alignment. No acute vertebral body compression fractures. No suspicious sclerotic or lytic bony lesions. Central spinal canal is of normal overall caliber. Tiny peripherally calcified disc protrusion at the T3-T4 without canal stenosis. Right facet hypertrophy at T11-T12 and T12-L1. Bilateral facet hypertrophy at T4-T5 and T5-T6. Diffuse posterior osteophyte at T12-L1. Mild increased thoracic kyphosis Soft tissues: No paravertebral masses or hematomas. Visualized posteromedial lungs appear clear. IMPRESSION: 1. Facet arthropathy as described above. 2. No acute compressions. Dictated by: Alex Godwin M.D. on 01/18/2022 at 15:01 Approved by: Alex Godwin M.D. on 01/18/2022 at 15:06
== END ==
PROVIDERS: PCP Student in an Organized Health Care Education/Training Program; Referring Provider Physical Medicine & Rehabilitation Pain Medicine; Visit Provider Physical Medicine & Rehabilitation Pain Medicine
DX: M47.814 Spondylosis without myelopathy or radiculopathy, thoracic region (principal)
CPT/HCPCS: 72128